=== PATIENT | female | born 1985 | race Caucasian/White ===

== ENCOUNTER → 2017-08-02 | Outpatient (CLI) | payer OTHER | LOC: FIMAGING 14:53 | PROVIDERS: ATTEND Family Medicine | DX: N60.82 Other benign mammary dysplasias of left breast (principal) ==

== ENCOUNTER 2018-11-20 06:00 | Inpatient (IN) | payer OTHER ==
[2018-11-20] MEDS ORDERED: LR 500 ML IV PRN (06:10)
[2018-11-20] MEDS ORDERED: IBUPROFEN 600 MG TAB PO PRN (06:23)
[2018-11-20] MEDS ORDERED: MISOPROSTOL 200 MCG TAB PR PRN (06:23)
[2018-11-20] MEDS ORDERED: OXYTOCIN/RINGERS LACTATE 1,000 ML IV PRN (06:23)
[2018-11-20] MEDS ORDERED: PENICILLIN G POTASSIUM 5,000,000 UNIT in D5W 150 ML IV ONE (06:23)
[2018-11-20] MEDS ORDERED: LIDOCAINE 1% 300 MG/30 ML SDV SC PRN (06:23)
[2018-11-20] MEDS ORDERED: LR 1,000 ML IV PRN (06:23)
[2018-11-20] MEDS ORDERED: OLIVE OIL 118 ML BTL MISC PRN (06:23)
[2018-11-20] MEDS ORDERED: EPSOM SALT 454 GM TP PRN (06:23)
[2018-11-20 06:55] LABS: PLATELET COUNT 166 10^3/uL (150-400)
[2018-11-20] MEDS ORDERED: AMMONIA AROMATIC 1 EACH AMP IH ONE (07:20)
[2018-11-20] MEDS ORDERED: TERBUTALINE SULFATE 1 MG/ML VIAL ONE (07:20)
[2018-11-20] MEDS ORDERED: MISOPROSTOL 200 MCG TAB ONE (07:20)
[2018-11-20] MEDS ORDERED: OLIVE OIL 118 ML BTL ONE (07:20)
[2018-11-20] MEDS ORDERED: OXYTOCIN 10 UNIT/ML VIAL ONE (07:20)
[2018-11-20] MEDS ORDERED: LIDOCAINE 1% 300 MG/30 ML SDV ONE (07:20)
--- NOTE | 2018-11-20 07:39 | PDGENHP ---
History and Physical - Chief Complaint postdates IOL - History of Present Illness 33 G1 at 41w1d by LMP c/w 7w4d here for postdates IOL. course has been uncomplicated. care with [facility] since first trimester. Had Saldivar bulb inserted through a closed cervix yesterday with Dr. Arboleda, 30 ml fluid. 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 Arboleda - no lesions seen. Hx of daily THC use prior to pos preg test. Neg urine drug screen in . labs: O pos Rub Imm GBS pos 12. at 10 wk plt 220 Ab sc neg RPR NR HBsAG neg HIV neg Std panel and CF/SMA/Fragile X neg UA and U cx neg pap neg, HPV pos Innatal neg 28 wk 36 1 hr GTT 83 History Information - Allergies/Home Medication List Allergies/Adverse Reactions: No Known Allergies Allergy (Verified 11/20/18 06:10) I have personally reviewed and updated: family history, medical history, social history, surgical history Past Medical History: HSV 1, genital - no outbreaks in . hx of pyelo x 1 - Surgical History Additional surgical history: tonsillectomy age 30 - Family History Additional family history: MGF - MD at 65. Pcousin - breast Ca. PGF - lung ca. MGM - uterine and breast ca - Social History Smoking Status: Never smoked Drug Use: Marijuana (prior to , stopped with pos preg test, neg UDS in ) Review of Systems Review of Systems: ROS: 10pt was reviewed & negative except for what was stated in HPI & below Physical Exam Physical Exam: FHR - 130 reactive, Cat 1, mod variability toco - irreg rare contraction 37.2 16 96 119/78 Constitutional: no apparent distress, appears nourished, not in pain Eyes: PERRL, anicteric sclera Ears, Nose, Mouth, Throat: moist mucous membranes, hearing normal, ears appear normal Cardiovascular: regular rate and rhythym, no murmur, rub, or gallop Respiratory: no respiratory distress, no rales or rhonchi, clear to auscultation Gastrointestinal: normoactive bowel sounds, other (gravid, term, fundus NT US done - confirms cephalic presentation) Genitourinary: no bladder fullness Skin: warm, normal color Musculoskeletal: full muscle strength Neurologic: AAOx3 Psychiatric: interacting appropriately, not anxious Lymph, Heme, Immunologic: no cervical LAD Lab Data & Imaging Review 11/20/18 06:40 WBC 9.67 10^3/uL (3.80-9.50) H 11/20/18 06:40 RBC 3.73 10^6/uL (4.18-5.33) L 11/20/18 06:40 Hgb 12.4 g/dL (12.6-16.3) L 11/20/18 06:40 Hct 36.4 % (38.0-47.0) L 11/20/18 06:40 MCV 97.6 fL (81.5-99.8) 11/20/18 06:40 MCH 33.2 pg (27.9-34.1) 11/20/18 06:40 MCHC 34.1 g/dL (32.4-36.7) 11/20/18 06:40 RDW 13.5 % (11.5-15.2) 11/20/18 06:40 Plt Count 166 10^3/uL (150-400) 11/20/18 06:40 MPV 12.8 fL (8.7-11.7) H 11/20/18 06:40 Neut % (Auto) 71.2 % (39.3-74.2) 11/20/18 06:40 Lymph % (Auto) 20.2 % (15.0-45.0) 11/20/18 06:40 Meeker % (Auto) 5.5 % (4.5-13.0) 11/20/18 06:40 Eos % (Auto) 2.2 % (0.6-7.6) 11/20/18 06:40 Baso % (Auto) 0.6 % (0.3-1.7) 11/20/18 06:40 Nucleat RBC Rel Count 0.0 % (0.0-0.2) 11/20/18 06:40 Absolute Neuts (auto) 6.89 10^3/uL (1.70-6.50) H 11/20/18 06:40 Absolute Lymphs (auto) 1.95 10^3/uL (1.00-3.00) 11/20/18 06:40 Absolute Monos (auto) 0.53 10^3/uL (0.30-0.80) 11/20/18 06:40 Absolute Eos (auto) 0.21 10^3/uL (0.03-0.40) 11/20/18 06:40 Absolute Basos (auto) 0.06 10^3/uL (0.02-0.10) 11/20/18 06:40 Absolute Nucleated RBC 0.00 10^3/uL (0-0.01) 11/20/18 06:40 Immature Gran % 0.3 % (0.0-1.1) 11/20/18 06:40 Immature Gran # 0.03 10^3/uL (0.00-0.10) 11/20/18 06:40 Patient ABO/Rh O POSITIVE 11/20/18 06:40 Antibody Screen NEGATIVE 11/20/18 06:40 Assessment & Plan Assessment: 33 G1 at 41w1d here for PD IOL. 1) Cephalic confirmed - will start pitocin. B/R/A discussed. EFW = 8lb 2) GBS pos - will start PCN with pitocin Abril Chris MD, FACOG [facility]
[2018-11-20] MEDS: OXYTOCIN/RINGERS LACTATE 500 ML IV SCH (08:25)
--- NOTE | 2018-11-20 12:17 | OBPROG ---
Labor Progress Note Assessment/Plan: Assessment: 33 G1 at 41w1d, undergoing IOL, is in early labor Plan: Continue with pitocin. May have epidural as desired. Anticipate vaginal delivery. Abril Chris MD, FACOG [facility] 11/20/18 12:12 Subjective/Intrapartum Course: Contractions becoming painful. Sm amt bloody show. No LOF. 11/20/18 12:14 Objective: 11/20/18 06:40 Patient ABO/Rh O POSITIVE 11/20/18 06:40 No new vital signs since admission Gen - pleasant, mildly uncomfortable with contractions - SVE Dilation (cm): 2 Effacement (%): 50 Station: -3 Membranes: Intact - Contraction Pattern Assessment Current Contraction Pattern: Regular - FHR Assessment Evans FHR (bpm): 130 FHR Pattern Variability: Moderate FHR Category: 1 - AP Antepartum Course: 11/20/18 12:18 Admitted for postdates IOL, received Saldivar bulb in office Tues 11/19 afternoon. Pitocin started 0830. Saldivar out spontaneously around 1200, cx 2.5 / 50 / -4 Oxytocin Orders Assessment - Pre-Induction/Augmentation Assessment Indication: induction, post dates Presentation: Vertex Gestational Age: 41 week(s) and 1 day(s) Gestational Age Determined By: Ultrasound, Last Menstral Period Estimated Weight: 1426-4015 Membrane Status: Intact Current Sterile Vaginal Exam (SVE): 2.5 / 50 / -4 Current Contraction Pattern: Regular - Heart Rate Pattern Evans FHR Baseline (bpm): 130 FHR Category: 1 FHR Pattern Variability: Moderate FHR Accelerations: Present - Green's Score Dilation: 1-2cm Effacement: 40-50 Station: -3 Cervix: Medium Cervix Position: Posterior Green Score Total: 3 - Induction/Augmentation Consent Risks/Benefits of Procedure Reviewed/Pt Agrees to Proceed: Yes ICD10 Worksheet Patient Problems: Problems Problem Status Onset Post-dates Acute Post-dates Acute - ICD10 Problem Qualifiers (1) Post-dates (2) Post-dates
[2018-11-20] MEDS: PENICILLIN G POTASSIUM 2,500,000 UNIT in D5W 150 ML IV SCH ×4 (12:37→20:44)
--- NOTE | 2018-11-20 18:29 | OBPROG ---
Labor Progress Note Assessment/Plan: Assessment: 33 G1 at 41w1d, undergoing IOL, is in early labor Plan: Continue with pitocin. May have epidural as desired. Anticipate vaginal delivery. Abril Chris MD, FACOG [facility] 11/20/18 12:12 A/P: 33 G1 at 41w1d, IOL, no progress since Saldivar bulb out, despite max dosing of pitocin. Will stop pitocin. Allow to have dinner. Start with buccal miso after finished eating. Abril Chris MD, FACOG 11/20/18 18:30 Subjective/Intrapartum Course: Contractions becoming painful. Sm amt bloody show. No LOF. 11/20/18 12:14 Ctxns were uncomfortable for a while, but have since decreased. Pt has been walking a lot. no LOF. Frustrated with no progress since noon. 11/20/18 18:31 Objective: 11/20/18 06:40 Patient ABO/Rh O POSITIVE 11/20/18 06:40 - SVE Dilation (cm): 2 Effacement (%): 50 Station: -3 Membranes: Intact - Contraction Pattern Assessment Current Contraction Pattern: Regular (q 2-4 ) - FHR Assessment Evans FHR (bpm): 130 (occasional variable decel to 90 x 10 sec) FHR Pattern Variability: Moderate FHR Category: 1 - AP Antepartum Course: 11/20/18 12:18 Admitted for postdates IOL, received Saldivar bulb in office 11/19 afternoon. Pitocin started 0830. Saldivar out spontaneously around 1200, cx 2.5 / 50 / -4 - Physical Exam Estimated Weight: 4495-1483 Oxytocin Orders Assessment - Pre-Induction/Augmentation Assessment Presentation: Vertex Gestational Age: 41 week(s) and 1 day(s) Estimated Weight: 4255-7249 ICD10 Worksheet Patient Problems: Problems Problem Status Onset Post-dates Acute Post-dates Acute - ICD10 Problem Qualifiers (1) Post-dates (2) Post-dates
[2018-11-20] MEDS: MISOPROSTOL 50 MCG CAP PO PRN (20:04)
[2018-11-20] MEDS ORDERED: diphenhydrAMINE 25 MG CAP PO PRN (23:33)
[2018-11-20] MEDS ORDERED: LR 500 ML IV ONE (23:45)
[2018-11-21] MEDS: MISOPROSTOL 50 MCG CAP PO PRN (00:21)
[2018-11-21] MEDS: PENICILLIN G POTASSIUM 2,500,000 UNIT in D5W 150 ML IV SCH ×4 (00:24→13:37)
--- NOTE | 2018-11-21 00:59 | OBPROG ---
Labor Progress Note Assessment/Plan: Assessment: 33 G1 at 41w1d, undergoing IOL, is in early labor Plan: Continue with pitocin. May have epidural as desired. Anticipate vaginal delivery. Abril Chris MD, FACOG [facility] 11/20/18 12:12 A/P: 33 G1 at 41w1d, IOL, no progress since Saldivar bulb out, despite max dosing of pitocin. Will stop pitocin. Allow to have dinner. Start with buccal miso after finished eating. Abril Chris MD, FACOG 11/20/18 18:30 A/P: 33 G1 at 41w2d, IOL, no evidence of labor. Had a great contraction pattern right after first dose of misoprostil at 2000, but then contractions stopped. Min contractions after 2nd dose of misoprostil at midnight. Will continue to monitor and try a 3rd dose of misoprostil prn at 0400. Abril Chris MD, FACOG 11/21/18 01:30 Subjective/Intrapartum Course: Contractions becoming painful. Sm amt bloody show. No LOF. 11/20/18 12:14 Ctxns were uncomfortable for a while, but have since decreased. Pt has been walking a lot. no LOF. Frustrated with no progress since noon. 11/20/18 18:31 Pt was sleeping quite soundly, but aroused easily and proceeded up to the bathroom. No longer feeling any contractions. No LOF. 11/21/18 01:34 Objective: 11/20/18 06:40 Patient ABO/Rh O POSITIVE 11/20/18 06:40 37.0 16 71 103/64 gen - pleasant, was sleeping soundly, easily aroused. - SVE Membranes: Intact - Contraction Pattern Assessment Current Contraction Pattern: Regular (q 2-4 ), Irregular - FHR Assessment Evans FHR (bpm): 135 FHR Pattern Variability: Moderate FHR Category: 1 - AP Antepartum Course: 11/20/18 12:18 Admitted for postdates IOL, received Saldivar bulb in office Tu11/19 afternoon. Pitocin started 0830. Saldivar out spontaneously around 1200, cx 2.5 / 50 / -4 - Physical Exam Estimated Weight: 9062-4068 Oxytocin Orders Assessment - Pre-Induction/Augmentation Assessment Presentation: Vertex Gestational Age: 41 week(s) and 1 day(s) Estimated Weight: 2938-9342 ICD10 Worksheet Patient Problems: Problems Problem Status Onset Post-dates Acute Post-dates Acute - ICD10 Problem Qualifiers (1) Post-dates (2) Post-dates
--- NOTE | 2018-11-21 04:27 | PREANESOB ---
Obstetric Pre-Anesthesia Info - General Info Proposed Procedure: SHANA : 1 Para: 0 HARRY: 11/12/18 Gestational Age: 41 week(s) and 1 day(s) - Info Status: Full Term Monitors: External FHR Pattern: Reassuring - Labor Status Cervical Dilation per last OB SVE: 2 Station per last OB SVE: -3 Labor Epidural: Proposed Anesthesia Allergies/Adverse Reactions: Allergy/AdvReac Type Severity Reaction Status Date / Time No Known Allergies Allergy Verified 11/20/18 06:10 Visit Medications: Generic Name Dose Route Start Last Admin Trade Name Freq PRN Reason Stop Dose Admin Lactated Ringer's 500 mls @ 500 mls/hr 11/20/18 06:10 Lr IV PRN PRN Maternal Hypotension Oxytocin/Lactated Ringer's 500 mls @ 0 mls/hr 11/20/18 06:10 11/20/18 08:25 Pitocin 30 Units/Lr (Premix) IV 05/19/19 06:09 500 mls CONT ANKUSH Administration Protocol Per Protocol Lactated Ringer's 1,000 mls @ 0 mls/hr 11/20/18 06:23 11/20/18 08:24 Lr IV 11/21/18 06:22 1,000 mls PRN PRN Administration SEE PROTOCOL CONDITIONS Protocol Per Protocol Oxytocin/Lactated Ringer's 1,000 mls @ 125 mls/hr 11/20/18 06:23 Pitocin 20 Units/Lr (Premix) IV PRN PRN Post bleeding Penicillin G Potassium 2,500, 155 mls @ 155 mls/hr 11/20/18 20:30 11/21/18 00 :24 000 unit/ Dextrose IV 12/20/18 20:29 155 mls Q4H ANKUSH Administration Protocol Ibuprofen 600 mg 11/20/18 06:23 Motrin PO ONCE PRN post , pain Lidocaine HCl 300 mg 11/20/18 06:23 Lidocaine Hcl 1% SC 05/19/19 06:22 ONCE PRN episiotomy Magnesium Sulfate 454 gm 11/20/18 06:23 Epsom Salt TP 05/19/19 06:22 Q1H PRN perineal discomfort Misoprostol 800 - 1,000 mcg 11/20/18 06:[address] ONCE PRN Vaginal Atony/Bleeding Misoprostol 50 mcg 11/20/18 19:46 11/21/18 00:21 Cytotec PO 05/19/19 19:45 50 mcg Q4H PRN Administration induction Boulder Oil 118 ml 11/20/18 06:23 Sweet Oil MISC 05/19/19 06:22 ONCE PRN perineal massage Discontinued Medications Generic Name Dose Route Start Last Admin Trade Name Rudyq PRN Reason Stop Dose Admin Ammonia (Aromatic Spirit) Confirm 11/20/18 07:20 Ammonia Aromatic Administered 11/20/18 07:21 Dose 1 each IH .STK-MED ONE Diphenhydramine HCl 25 mg 11/20/18 23:33 Benadryl PO 11/21/18 01:00 ONCE PRN Sleep Penicillin G Potassium 5,000, 160 mls @ 160 mls/hr 11/20/18 06:23 11/20/18 08 :25 000 unit/ Dextrose IV 11/20/18 07:22 160 mls ONCE ONE Administration Protocol Penicillin G Potassium 2,500, 155 mls @ 155 mls/hr 11/20/18 10:25 11/20/18 19 :43 000 unit/ Dextrose IV 12/20/18 10:24 Not Given Q4H ANKUSH Protocol Lactated Ringer's 500 mls @ 0 mls/hr 11/20/18 23:45 Lactated Ringers IV 11/20/18 23:46 ONCE ONE Wide Open Lidocaine HCl Confirm 11/20/18 07:20 Lidocaine Hcl 1% Administered 11/20/18 07:21 Dose 300 mg .ROUTE .STK-MED ONE Misoprostol Confirm 11/20/18 07:20 Cytotec Administered 11/20/18 07:21 Dose 1,000 mcg .ROUTE .STK-MED ONE Boulder Oil Confirm 11/20/18 07:20 Sweet Oil Administered 11/20/18 07:21 Dose 118 ml .ROUTE .STK-MED ONE Oxytocin Confirm 11/20/18 07:20 Pitocin Administered 11/20/18 07:21 Dose 40 unit .ROUTE .STK-MED ONE Terbutaline Sulfate Confirm 11/20/18 07:20 Brethine Administered 11/20/18 07:21 Dose 1 mg .ROUTE .STK-MED ONE - Vital Signs Height/Weight (Nursing): Height 152.4 cm Weight 63.049 kg Labs: 11/20/18 06:40 Patient ABO/Rh O POSITIVE 11/20/18 06:40
[2018-11-21] MEDS ORDERED: PHENYLEPHRINE HCL 100 MCG/ML SYR ONE (04:29)
[2018-11-21] MEDS ORDERED: BUPIVACAINE 0.25% 10 ML SDV ONE ×2 (04:29→05:16)
[2018-11-21] MEDS ORDERED: fentaNYL 2MCG/ML/BUP 0.1% RTU 100 ML BAG EP ONE (04:30)
[2018-11-21] MEDS ORDERED: PHENYLEPHRINE HCL 100 MCG/ML SYR IVP PRN (05:09)
[2018-11-21] MEDS ORDERED: fentaNYL 100 MCG/2 ML INJ ONE (05:15)
[2018-11-21] MEDS ORDERED: fentaNYL 2MCG/ML/BUP 0.1% RTU 100 ML EP SCH (05:30)
[2018-11-21] MEDS ORDERED: LR 500 ML IV SCH (05:30)
--- NOTE | 2018-11-21 06:20 | OBPROG ---
Labor Progress Note Assessment/Plan: Assessment: 33 G1 at 41w1d, undergoing IOL, is in early labor Plan: Continue with pitocin. May have epidural as desired. Anticipate vaginal delivery. Abril Chris MD, FACOG [facility] 11/20/18 12:12 A/P: 33 G1 at 41w1d, IOL, no progress since Saldivar bulb out, despite max dosing of pitocin. Will stop pitocin. Allow to have dinner. Start with buccal miso after finished eating. Abril Chris MD, FACOG 11/20/18 18:30 A/P: 33 G1 at 41w2d, IOL, no evidence of labor. Had a great contraction pattern right after first dose of misoprostil at 2000, but then contractions stopped. Min contractions after 2nd dose of misoprostil at midnight. Will continue to monitor and try a 3rd dose of misoprostil prn at 0400. Abril Chris MD, FACOG 11/21/18 01:30 A/P: 33 G1 at 41w2d, IOL, finally in active labor (s/p 12 hours pitocin and 2 doses of misoprostil), comfortable with epidural. Intermittent heart rate decels since epidural. Continue supportive care, has received a bolus, O2 is on, position changes performed. Caput present at 6 cm. Will give report to Dr. Angulo at 0700. Abril Chris MD 11/21/18 06:14 Subjective/Intrapartum Course: Contractions becoming painful. Sm amt bloody show. No LOF. 11/20/18 12:14 Ctxns were uncomfortable for a while, but have since decreased. Pt has been walking a lot. no LOF. Frustrated with no progress since noon. 11/20/18 18:31 Pt was sleeping quite soundly, but aroused easily and proceeded up to the bathroom. No longer feeling any contractions. No LOF. 11/21/18 01:34 Pt now comfortable with epidural. SROM - clear fluid at 0342. Epidural placed around 0445. 11/21/18 06:19 Objective: 11/20/18 06:40 Patient ABO/Rh O POSITIVE 11/20/18 06:40 36.3 50 96/68, though was down to 82/51 right after 5 min FHR decel 96% on RA gen - pt now comfortable with epidural, cooperative, fatigued abd - gravid, soft SVE - 6 / 80/ -3, caput noted - SVE Dilation (cm): 6 Effacement (%): 80 Station: -2 Membranes: SROM Amniotic Fluid Color: Clear - Contraction Pattern Assessment Current Contraction Pattern: Regular (q 2-4 ) - FHR Assessment Evans FHR (bpm): 135 FHR Pattern Variability: Moderate FHR Category: 2 (intermittently Cat 2. Had a 5 min bradycardic episode to 60, with a 2 minute return to baseline, followed by minimal variability initially, but now) - AP Antepartum Course: 11/20/18 12:18 Admitted for postdates IOL, received Saldivar bulb in office Tues 11/19 afternoon. Pitocin started 08. Saldivar out spontaneously around 1200, cx 2.5 / 50 / -4 11/21/18 06:35 Pitocin x 12 hours - no change. 0800 - 2000. Misoprostil x 2 doses. SROM at 0341 epidural at 0445 Has been receiving PCN q 4 hours since 0800 on 11/20/18. - Physical Exam Estimated Weight: 4878-9801 Oxytocin Orders Assessment - Pre-Induction/Augmentation Assessment Presentation: Vertex Gestational Age: 41 week(s) and 1 day(s) Estimated Weight: 7901-6446 ICD10 Worksheet Patient Problems: Problems Problem Status Onset Post-dates Acute Post-dates Acute - ICD10 Problem Qualifiers (1) Post-dates (2) Post-dates
--- NOTE | 2018-11-21 07:14 | OBPROG ---
Labor Progress Note Assessment/Plan: Assessment: 33 G1 at 41w1d, undergoing IOL, is in early labor Plan: Continue with pitocin. May have epidural as desired. Anticipate vaginal delivery. Abril Chris MD, FACOG [facility] 11/20/18 12:12 A/P: 33 G1 at 41w1d, IOL, no progress since Saldivar bulb out, despite max dosing of pitocin. Will stop pitocin. Allow to have dinner. Start with buccal miso after finished eating. Abril Chris MD, FACOG 11/20/18 18:30 A/P: 33 G1 at 41w2d, IOL, no evidence of labor. Had a great contraction pattern right after first dose of misoprostil at 2000, but then contractions stopped. Min contractions after 2nd dose of misoprostil at midnight. Will continue to monitor and try a 3rd dose of misoprostil prn at 0400. Abril Chris MD, FACOG 11/21/18 01:30 A/P: 33 G1 at 41w2d, IOL, finally in active labor (s/p 12 hours pitocin and 2 doses of misoprostil), comfortable with epidural. Intermittent heart rate decels since epidural. Continue supportive care, has received a bolus, O2 is on, position changes performed. Caput present at 6 cm. Will give report to Dr. Angulo at 0700. Abril Chris MD 11/21/18 06:14 11/21/18 07:03 A/P: Making rapid progress, with intermittent intolerance of labor. Likely related to hypotension. C/S consent signed proactively. Will continue supportive cares, IV hydration, BP support. Report given to Dr. Angulo. Abril Chris MD 11/21/18 07:15 Subjective/Intrapartum Course: Contractions becoming painful. Sm amt bloody show. No LOF. 11/20/18 12:14 Ctxns were uncomfortable for a while, but have since decreased. Pt has been walking a lot. no LOF. Frustrated with no progress since noon. 11/20/18 18:31 Pt was sleeping quite soundly, but aroused easily and proceeded up to the bathroom. No longer feeling any contractions. No LOF. 11/21/18 01:34 Pt now comfortable with epidural. SROM - clear fluid at 0342. Epidural placed around 0445. 11/21/18 06:19 Comfortable with epidural. 11/21/18 07:14 Objective: 11/20/18 06:40 Patient ABO/Rh O POSITIVE 11/20/18 06:40 - SVE Dilation (cm): 9 Effacement (%): 100 Station: -1 Membranes: SROM Amniotic Fluid Color: Clear - Contraction Pattern Assessment Current Contraction Pattern: Regular (q 2-4 ) - FHR Assessment Evans FHR (bpm): 135 (recurrent bradycardic epidsodes) FHR Category: 2 - AP Antepartum Course: 11/20/18 12:18 Admitted for postdates IOL, received Saldivar bulb in office Tues 11/19 afternoon. Pitocin started 0830. Saldivar out spontaneously around 1200, cx 2.5 / 50 / -4 11/21/18 06:35 Pitocin x 12 hours - no change. 0800 - 1999. Misoprostil x 2 doses. SROM at 0341 epidural at 0445 Has been receiving PCN q 4 hours since 0800 on 11/20/18. - Physical Exam Estimated Weight: 8390-6516 Oxytocin Orders Assessment - Pre-Induction/Augmentation Assessment Presentation: Vertex Gestational Age: 41 week(s) and 1 day(s) Estimated Weight: 1841-7789 ICD10 Worksheet Patient Problems: Problems Problem Status Onset Post-dates Acute Post-dates Acute - ICD10 Problem Qualifiers (1) Post-dates (2) Post-dates
--- NOTE | 2018-11-21 08:17 | OBPROG ---
Labor Progress Note Assessment/Plan: Assessment: 33 y/o @ 41 2/7 weeks for postdate IOL Plan: SVE: complete/+1 FHTs - Cat II tracing with intermittent variable decels; BPs improved Will start pushing now Will cont to closely monitor the strip with low threshold for c/s if no progress pushing 11/21/18 08:18 Subjective/Intrapartum Course: Contractions becoming painful. Sm amt bloody show. No LOF. 11/20/18 12:14 Ctxns were uncomfortable for a while, but have since decreased. Pt has been walking a lot. no LOF. Frustrated with no progress since noon. 11/20/18 18:31 Pt was sleeping quite soundly, but aroused easily and proceeded up to the bathroom. No longer feeling any contractions. No LOF. 11/21/18 01:34 Pt now comfortable with epidural. SROM - clear fluid at 0342. Epidural placed around 0445. 11/21/18 06:19 Comfortable with epidural. 11/21/18 07:14 11/21/18 08:22 Pt is feeling pressure. Objective: 11/20/18 06:40 Patient ABO/Rh O POSITIVE 11/20/18 06:40 - SVE Dilation (cm): 10 Station: +1 Membranes: SROM Amniotic Fluid Color: Clear - Contraction Pattern Assessment Current Contraction Pattern: Regular (q 2-4 ) - FHR Assessment Evans FHR (bpm): 130 FHR Pattern Variability: Moderate FHR Category: 2 (intermittent decels with carlos to 90 bpm x 60 seconds-mostly variable, few late decels) - AP Antepartum Course: 11/20/18 12:18 Admitted for postdates IOL, received Saldivar bulb in office 11/19 afternoon. Pitocin started 0830. Saldivar out spontaneously around 1200, cx 2.5 / 50 / -4 11/21/18 06:35 Pitocin x 12 hours - no change. 799 - 1999. Misoprostil x 2 doses. SROM at 0341 epidural at 0445 Has been receiving PCN q 4 hours since 0800 on 11/20/18. - Physical Exam Estimated Weight: 3794-0562 Oxytocin Orders Assessment - Pre-Induction/Augmentation Assessment Presentation: Vertex Gestational Age: 41 week(s) and 1 day(s) Estimated Weight: 2263-0340 ICD10 Worksheet Patient Problems: Problems Problem Status Onset Post-dates Acute Post-dates Acute
[2018-11-21] MEDS: OXYTOCIN/RINGERS LACTATE 500 ML IV SCH (09:31)
[2018-11-21] MEDS ORDERED: DOCUSATE SODIUM 100 MG CAP PO PRN (10:55)
[2018-11-21] MEDS ORDERED: SIMETHICONE 80 MG TAB CHEW PO PRN (10:55)
[2018-11-21] MEDS ORDERED: HYDROCORTISONE 0.5% CREAM TP PRN (10:55)
--- NOTE | 2018-11-21 11:02 | OBDEL ---
Info Type: Vaginal Presentation at Delivery: Vertex (MADIHA) L&D Analgesia/Anesthesia Type: Epidural GBS+: Yes Antibiotic Used for + GBS: Ampicillin Intrapartum Medications: Generic Name Dose Route Start Last Admin Trade Name Freq PRN Reason Stop Dose Admin Oxytocin/Lactated Ringer's 500 mls @ 0 mls/hr 11/20/18 06:10 11/21/18 09:31 Pitocin 30 Units/Lr (Premix) IV 05/19/19 06:09 500 mls CONT ANKUSH Administration Protocol Per Protocol Penicillin G Potassium 2,500, 155 mls @ 155 mls/hr 11/20/18 20:30 11/21/18 09 :06 000 unit/ Dextrose IV 12/20/18 20:29 155 mls Q4H ANKUSH Administration Protocol Misoprostol 50 mcg 11/20/18 19:46 11/21/18 00:21 Cytotec PO 05/19/19 19:45 50 mcg Q4H PRN Administration induction Phenylephrine HCl 100 mcg 11/21/18 05:09 11/21/18 06:33 Neosynephrine IVP 05/20/19 05:08 100 mcg .Q2M PRN Administration Hypotension Discontinued Medications Generic Name Dose Route Start Last Admin Trade Name [place] PRN Reason Stop Dose Admin Lactated Ringer's 1,000 mls @ 0 mls/hr 11/20/18 06:23 11/20/18 08:24 Lr IV 11/21/18 06:22 1,000 mls PRN PRN Administration SEE PROTOCOL CONDITIONS Protocol Per Protocol Penicillin G Potassium 5,000, 160 mls @ 160 mls/hr 11/20/18 06:23 11/20/18 08 :25 000 unit/ Dextrose IV 11/20/18 07:22 160 mls ONCE ONE Administration Protocol Penicillin G Potassium 2,500, 155 mls @ 155 mls/hr 11/20/18 10:25 11/20/18 19 :43 000 unit/ Dextrose IV 12/20/18 10:24 Not Given Q4H [facility] Protocol - Care Provider Design Director/SUPERINTENDENT RADIO COMMUNICATIONS: Sandra Blackburn - Hospital Course Intrapartum: Contractions becoming painful. Sm amt bloody show. No LOF. 11/20/18 12:14 Ctxns were uncomfortable for a while, but have since decreased. Pt has been walking a lot. no LOF. Frustrated with no progress since noon. 11/20/18 18:31 Pt was sleeping quite soundly, but aroused easily and proceeded up to the bathroom. No longer feeling any contractions. No LOF. 11/21/18 01:34 Pt now comfortable with epidural. SROM - clear fluid at 0342. Epidural placed around 0445. 11/21/18 06:19 Comfortable with epidural. 11/21/18 07:14 11/21/18 08:22 Pt is feeling pressure. Indications for Delivery: Postterm Unfavorable Cervix Vaginal Delivery - Delivery Provider Delivery Physician/CNM: Lorene Angulo - Labor and Delivery Onset of Contractions Date: 11/20/18 Onset of Contractions Time: 11:00 Onset of Contractions Type: Induced Rupture of Membranes Date: 11/21/18 Rupture of Membranes Time: 03:41 Rupture of Membranes Type: Spontaneous Amniotic Fluid Color: Clear Dilation Complete Date: 11/21/18 Dilation Complete Time: 08:08 Placenta Delivery Date: 11/21/18 Placenta Delivery Time: 10:37 Total Hours of Labor: 23 Laceration: Other (Specify) (b/l periurerthral tear - not repaired; hemostatic) Vaginal Sponge Count Correct: Yes Vaginal Needle Count Correct: Yes Vaginal Sweep Performed: Yes EBL: 400 cc Delivery Events: Retained Placenta (-20 minutes after delivery, placenta noted to be retained. Manual extraction performed with removal of half of placenta. Placenta noted to be adhered to uterus anteriorly by bedside ultrasound. Under u /s guidance, a Bernardo curette was advanced to the fundus of uterus and used to help detach retained placenta-this was done several times. The remainder of the placenta was then removed manually intact. U/S then revealed a thin stripe-Dr. Mary Gomes at bedside performing u/s. Bleeding minimal noted after. Uterus firm at fundus. Pitocin running. EBL-400cc.) Cord Gases: Cord Gases Cord Blood PCO2 72 mmHg (37-60) H 11/21/18 10:25 Cord Base Excess -11.1 mEq/L (-13.6--3.2) 11/21/18 10:25 Cord ABG pH 7.09 (7.10-7.37) L 11/21/18 10:25 Cord VBG pH 7.27 (7.20-7.42) 11/21/18 10:25 - Medications Labor Augmentation/Induction Methods Used: Pitocin, Misoprostol, Saldivar Bulb Labor Augmentation/Induction Indication: Post Dates Operative Report - Delivery Cord Gases: Cord Gases Cord Blood PCO2 72 mmHg (37-60) H 11/21/18 10:25 Cord Base Excess -11.1 mEq/L (-13.6--3.2) 11/21/18 10:25 Cord ABG pH 7.09 (7.10-7.37) L 11/21/18 10:25 Cord VBG pH 7.27 (7.20-7.42) 11/21/18 10:25 Data HARRY: 11/12/18 Gestational Age: 41 week(s) and 2 day(s) Evans Delivery Date: 11/21/18 Delivery Time: 10:09 Sex of Infant: Male Score (1 Min): 5 Score (5 Min): 8 ICD10 Worksheet Patient Problems: Problems Problem Status Onset Post-dates Acute Post-dates Acute Retained placenta after delivery without hemorrhage but with other complication Acute (spontaneous vaginal delivery) Acute - ICD10 Problem Qualifiers (1) Retained placenta after delivery without hemorrhage but with other complication (2) (spontaneous vaginal delivery)
[2018-11-21] MEDS: ACETAMINOPHEN 325 MG TAB PO PRN ×2 (15:36→21:24)
[2018-11-21] MEDS: IBUPROFEN 600 MG TAB PO PRN (18:01)
[2018-11-22] MEDS: IBUPROFEN 600 MG TAB PO PRN ×4 (00:06→17:59)
[2018-11-22] MEDS: ACETAMINOPHEN 325 MG TAB PO PRN ×4 (03:55→22:26)
--- NOTE | 2018-11-22 09:22 | POSTANESTH ---
Post Anesthetic Evaluation Cardiovascular Status: Normal, Stable Respiratory Status: Normal, Stable Level of Consciousness/Mental Status: Can Participate in Eval, Alert and Oriented Pain Control: Adequate, Prn Tx Ordered Nausea/Vomiting Control: Adequate, Prn Tx Ordered Complications Possibly Related to Anesthesia: None Noted
--- NOTE | 2018-11-22 18:38 | OBPP ---
Progress Note Assessment/Plan: Assessment: ppd # 1 s/p breast feeding o+/RI/GBS post anxiety/ trauma regarding manual extraction of placenta Plan: 11/22/18 18:34 Subjective/ Course: 11/22/18 18:34 patient is doing well. pain is well controlled. normal lochia. denies headache and changes in vision. breast feeding is going well. tearful when talking about delivery and removal of placenta. every time she tries to go to sleep she has visions of the delivery of the placenta. discussed post mood precautions and post wellness center. Objective: 11/22/18 06:00 Patient ABO/Rh O POSITIVE 11/20/18 06:40 Temp Pulse Resp BP Pulse Ox 36.3 C 78 16 117/74 93 11/22/18 08:00 11/22/18 08:00 11/22/18 08:00 11/22/18 08:00 11/21/18 16:19 Physical Exam - Physical Exam Neck: non-tender, full range of motion, supple Respiratory: chest non-tender, lungs clear, normal breath sounds Cardiac/Chest: normal peripheral pulses, regular rate, rhythm Abdomen: normal bowel sounds, non-tender, other (fundus firm and non tender) Extremities: normal range of motion, non-tender, normal inspection, normal capillary refill Skin: normal color, warm/dry Neuro/Psych: no motor/sensory deficits, alert, normal mood/affect, oriented x 3
[2018-11-23] MEDS: IBUPROFEN 600 MG TAB PO PRN ×2 (00:28→07:23)
[2018-11-23] MEDS: ACETAMINOPHEN 325 MG TAB PO PRN (07:22)
[2018-11-23 08:23] VITALS: BP 120/71
[2018-11-23] MEDS ORDERED: FERRO-SEQUELS 65 MG TAB.ER PO SCH (09:00)
--- NOTE | 2018-11-23 11:45 | OBPP ---
Progress Note Assessment/Plan: Assessment: 33 G1 at 41w1d, undergoing IOL, is in early labor Plan: Continue with pitocin. May have epidural as desired. Anticipate vaginal delivery. Abril Chris MD, FACOG [facility] 11/20/18 12:12 A/P: 33 G1 at 41w1d, IOL, no progress since Saldivar bulb out, despite max dosing of pitocin. Will stop pitocin. Allow to have dinner. Start with buccal miso after finished eating. Abril Chris MD, FACOG 11/20/18 18:30 A/P: 33 G1 at 41w2d, IOL, no evidence of labor. Had a great contraction pattern right after first dose of misoprostil at 2000, but then contractions stopped. Min contractions after 2nd dose of misoprostil at midnight. Will continue to monitor and try a 3rd dose of misoprostil prn at 0400. Abril Chris MD, FACOG 11/21/18 01:30 A/P: 33 G1 at 41w2d, IOL, finally in active labor (s/p 12 hours pitocin and 2 doses of misoprostil), comfortable with epidural. Intermittent heart rate decels since epidural. Continue supportive care, has received a bolus, O2 is on, position changes performed. Caput present at 6 cm. Will give report to Dr. Angulo at 0700. Abril Chris MD 11/21/18 06:14 11/21/18 07:03 A/P: Making rapid progress, with intermittent intolerance of labor. Likely related to hypotension. C/S consent signed proactively. Will continue supportive cares, IV hydration, BP support. Report given to Dr. Angulo. Abril Chris MD 11/21/18 07:15 11/23/18 11:39 A/P: 33 G1now P1 PPD#2 s/p with retained placenta. Doing well, ready to go home. Some concerns about PTSD with the curetting for retained placenta - will contact [facility]. Routine pp vag delivery instructions reviewed. Abril Chris MD, FACOG Subjective/ Course: 11/22/18 18:34 patient is doing well. pain is well controlled. normal lochia. denies headache and changes in vision. breast feeding is going well. tearful when talking about delivery and removal of placenta. every time she tries to go to sleep she has visions of the delivery of the placenta. discussed post mood precautions and post wellness center. 11/23/18 11:41 Doing well. Pain well controlled with po ibuprofen and acetominophen. Ambulating and voiding without difficulty. NO BM yet. going well. AGain tearful about thinking about trauma of retained placenta and the procedure (curetting) for removal. Willing to contact [facility] for support. present and well aware and very supportive. Objective: 11/22/18 06:00 Patient ABO/Rh O POSITIVE 11/20/18 06:40 Temp Pulse Resp BP Pulse Ox 36.4 C 65 17 120/71 95 11/23/18 08:00 11/23/18 08:00 11/23/18 08:00 11/23/18 08:00 11/23/18 08:00 gen - pleasant, NAD CV - RRR chest - CTAB abd - soft, fundus firm at umbilicus-1, NT ext - 1+ edema BLE, neg Kali's perineum not examined - did not have any lacerations. Uterine Position/Fundal Height: Umbilicus -1, Umbilicus -2 Uterine Tone: Firm
--- NOTE | 2018-11-23 11:49 | OBGCSDC ---
General Delivery Information - General Info : 1 Para: 1 Abortions: 0 Type: Vaginal L&D Analgesia/Anesthesia Type: Epidural, Nitrous Admission Date: 11/20/18 Labs: Patient ABO/Rh O POSITIVE 11/20/18 06:40 Hct 33.1 % (38.0-47.0) L 11/22/18 06:00 - Hospital Course Antepartum: 11/20/18 12:18 Admitted for postdates IOL, received Saldivar bulb in office Tu11/19 afternoon. Pitocin started 829. Saldivar out spontaneously around 1200, cx 2.5 / 50 / -4 11/21/18 06:35 Pitocin x 12 hours - no change. 799 - 1999. Misoprostil x 2 doses. SROM at 0341 epidural at 0445 Has been receiving PCN q 4 hours since 0800 on 11/20/18. Intrapartum: Contractions becoming painful. Sm amt bloody show. No LOF. 11/20/18 12:14 Ctxns were uncomfortable for a while, but have since decreased. Pt has been walking a lot. no LOF. Frustrated with no progress since noon. 11/20/18 18:31 Pt was sleeping quite soundly, but aroused easily and proceeded up to the bathroom. No longer feeling any contractions. No LOF. 11/21/18 01:34 Pt now comfortable with epidural. SROM - clear fluid at 0342. Epidural placed around 0445. 11/21/18 06:19 Comfortable with epidural. 11/21/18 07:14 11/21/18 08:22 Pt is feeling pressure. : 11/22/18 18:34 patient is doing well. pain is well controlled. normal lochia. denies headache and changes in vision. breast feeding is going well. tearful when talking about delivery and removal of placenta. every time she tries to go to sleep she has visions of the delivery of the placenta. discussed post mood precautions and post wellness center. 11/23/18 11:41 Doing well. Pain well controlled with po ibuprofen and acetominophen. Ambulating and voiding without difficulty. NO BM yet. going well. AGain tearful about thinking about trauma of retained placenta and the procedure (curetting) for removal. Willing to contact [facility] for support. present and well aware and very supportive. Vaginal - Delivery Provider Delivery Physician/CNM: Lorene Angulo - Diagnosis Labor: Induced Rupture of Membranes Type: Spontaneous Amniotic Fluid Color: Clear Laceration: Other (Specify) (b/l periurerthral tear - not repaired; hemostatic) Delivery Events: Retained Placenta (-20 minutes after delivery, placenta noted to be retained. Manual extraction performed with removal of half of placenta. Placenta noted to be adhered to uterus anteriorly by bedside ultrasound. Under u /s guidance, a Bernardo curette was advanced to the fundus of uterus and used to help detach retained placenta-this was done several times. The remainder of the placenta was then removed manually intact. U/S then revealed a thin stripe-Dr. Mary Gomes at bedside performing u/s. Bleeding minimal noted after. Uterus firm at fundus. Pitocin running. EBL-400cc.) - Delivery EBL: 400 cc Data HARRY: 11/12/18 Gestational Age: 41 week(s) and 4 day(s) Evans Delivery Date: 11/21/18 Delivery Time: 10:09 (Roni) Sex of : Male [place] Weight (gm): 3302 kg Score (1 Min): 5 Score (5 Min): 8 Discharge Information - Discharge Information Condition: Good Instruction/Follow Up: See Instruction Sheet, One Week (appt with [facility]. ) , Six Weeks (full physical exam with physician at [facility])
== END 2018-11-23 12:05 | disposition home or self-care (01) | DRG 797 ==
LOC: FLD 06:01 → FOB 11-21 13:47
PROVIDERS: ADMIT Obstetrics & Gynecology; ATTEND Obstetrics & Gynecology
DX: O48.0 Post-term pregnancy (principal); O73.1 Retained portions of placenta and membranes, without hemorrhage; O99.820 Streptococcus B carrier state complicating pregnancy; O98.311 Other infections with a predominantly sexual mode of transmission complicating pregnancy, first trimester; A60.04 Herpesviral vulvovaginitis; Z3A.41 41 weeks gestation of pregnancy; Z37.0 Single live birth
CPT/HCPCS: J2370; J2540; J2590; J3010; J3105